=== PATIENT | female | born 1975 | race Caucasian/White ===

== ENCOUNTER 2016-11-19 20:54 | Emergency (ER) | payer OTHER ==
[2016-11-19 21:13] VITALS: BMI 27.3
[2016-11-19] MEDS ORDERED: THIAMINE HCL INJ ONE (21:20)
[2016-11-19] MEDS ORDERED: PHENOBARBITAL SODIUM INJ 65 MG VIAL ONE (21:20)
[2016-11-19] MEDS ORDERED: MAGNESIUM SULFATE 50% INJ ONE (21:21)
[2016-11-19] MEDS ORDERED: MVI INJ (ADULT) IV ONE (21:21)
[2016-11-19] MEDS ORDERED: NS 1000 ML 1,000 ML ONE (21:21)
--- NOTE | 2016-11-19 21:24 | DR.GENAD ---
HPI - PCP Primary Care Physician: NFD - Complaint/Symptoms Chief Complaint Doctors Comments: Patient states she is having withdrawals from "alcohol mainly" and she has been trying to manage it at home but has not been successful. [facility] she has a bed for rehab Tuesday but did not think she could wait that long. States the last time she went through withdrawals was about about a month ago. She is complaining of persistent dry heaving, nasuea, vomiting, SoB but karen chest pain, cold, cough, fever or chills. [facility] she drank 6 oz wine, 12 pack today but she has been trying to scale back when she normally drink three liters, and 2-3 tall one daily. She has used drugs but none recently. [facility] she was admitted at [facility] in [facility] about 3-4 weeks ago with the same problem and they have a bed for her on Tuesday. [facility] she was admitted at [facility] to being admitted at [facility]. [facility] she has an implant in her left arm and she is not . Chief Complaint:: ALCOHOL WITHDRAWAL Self Treatment fo Chief Complaint: ZOFRAN 4 AND ONE LITER OF FLUIDS ENROUTE - Nurses notes reviewed Nurses Notes Review: Yes - Source History Provided: Patient, EMS - Mode of Arrival Mode of Arrival: EMS - Timing Onset of Chief Complaint: 11/16/16 Came on: Gradually - Duration Duration: Constant How lon Duration: Days - Location Location: diffuse nausea - Severity Severity: Moderate - Modifying Factors Worsens:: nothing Improves:: nothing PMH - PMH Past Medical History: No Past Surgical History: No - Family History History of Family Medical Conditions: Yes Family Medical History: Hypertension - Social History Does patient currently use any type of tobacco product: No Have you used tobacco products in the last 12 months: No Type of Tobacco Use: None Does any household member use tobacco: No Alcohol Use: Heavy Do you use any recreational Drugs:: Yes (MARIJUANA) Lives With: Family Lives Where: Home - infectious screening In the last 2 months have you had wt loss of >10#?: NO Have you had fever, night sweats or hemotysis?: No Have you traveled outside the country in the last 6 months?: No Isolation: Standard ROS - Review of Systems Constitutional: No Symptoms Reported, Weakness, Loss of Appetite. negative: See HPI, Chills, Diaphoresis, Fever, Malaise, Irritable, Fatigue, Other Eyes: No Symptoms Reported ENTM: No Symptoms Reported. negative: See HPI, Ear Pain, Ear Discharge, Pulling on Ears, Hearing Loss, Nose Pain, Nose Discharge, Epistaxis, Nose Congestion, Mouth Pain, Mouth Swelling, Loose Teeth, Drooling, Throat Pain, Throat Swelling, Ear Foreign Body Respiratoy: No Symptoms Reported, Short of Breath. negative: See HPI, Productive Cough, Non-Productive Cough, Moist Cough, Dry Cough, Hacking Cough, Barking Cough, Brassy Cough, Orthopnea, Stridor, Wheezing, Hemoptysis, Other Cardiovascular: No Symptoms Reported Gastrointestinal/Abdominal: Nausea, Vomiting. negative: No Symptoms Reported, See HPI, Abdominal Pain, Constipation, Diarrhea, Food Intolerance, Other Genitourinary: No Symptoms Reported, Frequency. negative: See HPI, Discharge, Dysuria, Hematuria, Pain, Bleeding, Other Neurological: No Symptoms Reported. negative: See HPI, Anxiety, Depressed, Emotional Problems, Headache, Numbness, Paresthesia, Pre-existing Deficit, Seizure, Tingling, Tremors, Weakness, Dizziness, Problems Walking, Speech Problem, Other Musculoskeletal: No Symptoms Reported Integumentary: No Symptoms Reported Hematologic/Lymphatic: No Symptoms Reported Endocrine: No Symptoms Reported Psychiatric: No Symptoms Reported. negative: See HPI, Anxiety, Depression, Hallucinations, Excessive crying, Suicidal, Other PE - Vital Signs Vitals: Temperature 98.9 F Pulse Rate [Left Brachial] 84 Pulse Rate 126 Respiratory Rate 20 Blood Pressure [Left Arm] 141/84 Blood Pressure 171/104 O2 Sat by Pulse Oximetry 100 - General Limitations: No Limitations General Appearance: Alert, In Distress (mild) - Head Head Exam: Normal Inspection, Atraumatic, Normocephalic - Eyes Eye exam: Normal Appearance, PERRL, EOMI. negative: Scleral Icterus, Conjunctival Injection, Nystagmus, Miosis, Mydrasis, Periorbital Swelling, Periorbital Tenderness, Other - ENT ENT Exam: Normal Exam, Normal Oropharynx, Normal External Ear Exam, Mucous Membranes Moist, TM's Normal Bilaterally External Ear Exam: Normal External Inspection TM/Canal Exam: Bilateral Normal Nose Exam: Normal Nose Exam Mouth Exam: Normal Inspection. negative: Drooling, Trismus, Lip Swelling, Tongue Elevation, Tongue Swelling, Laceration, Other Throat Exam: Normal Inspection. negative: Tonsillar Erythema, Tonsillomegaly, Tonsillar Exudate, R Peritonsillar Mass, L Peritonsillar Mass, Muffled Voice, Other - Neck Neck Exam: Normal Inspection, Full ROM, Trachea Midline. negative: Tenderness, Meningismus, Lymphadenopathy, Thyromegaly, Other - Chest Chest Inspection: Normal Inspection, Symmetric Chest Wall Rise. negative: Tenderness, Rash, Abscess, Other - Respiratory Respiratory Exam: Normal Lung Sounds Bilat Respiratory Exam: Bilateral Clear to Auscultation - Cardiovascular Cardiovascular Exam: Regular Rate, Tachycardia, Normal Heart Sounds - Abdominal Exam Abdominal Exam: Normal Inspection, Normal Bowel Sounds, Soft, Tenderness ( slight LUQ and epigastric tenderness). negative: Distention, Guarding, Rebound , Rigidity, Dimnished Bowel Sounds, Hyperactive Bowel Sounds, Hypoactive Bowel Sounds, Organomegaly, Trauma, Incision, Ascites, Mass, Bruit, Pulsatile Mass, Hernia, Other Abdominal Tenderness: LUQ, Epigastrium, Mild - Extremities Extremities Exam: Normal Inspection, Full ROM, Normal Capillary Refill. negative: Tenderness, Edema, Joint Swelling, Calf Tenderness, Other - Back Back Exam: Normal Inspection, Full ROM. negative: Tenderness, (R) CVA Tenderness, (L) CVA Tenderness, Muscle Spasm, Paraspinal Tenderness, Vertebral Tenderness, Rashes, (R) Sciatic Notch Tenderness, (L) Sciatic Notch Tendern, (R ) Straight Leg Raise, (L) Straight Leg Raise, Other - Neurologic Neurological Exam: Alert, Oriented X3, CN II-XII Intact, Reflexes Normal. negative: Normal Gait (gait not tested) - Psychiatric Psychiatric Exam: Normal Affect, Normal Mood - Skin Skin Exam: Warm, Dry, Intact, Normal Color Course - Reevaluation 3rd: Improved (Patient referred to the [facility] for treatment. She is making arrangement for them to take her today.1000am. ) - Consultation Called: 23:25 Call Returned: 23:25 (Dr. Turner contacted patient to be dismissed) Consultation Comments: Patient had a bed for detox and she is not in withdrawals presently. Patient to return if she gets worst. - Education/Counseling Education/Counseling: Patient Educated On: Treatment, Diagnosis, Needs for Follow Up ROR - Labs Reviewed Laboratory Results Reviewed?: Yes (all labs and x-ray results reviewed and discussed with patient) Result Diagrams: 11/19/16 21:26 11/20/16 04:20 Laboratory: WBC 6.5 X10^3/uL (3.6-10.0) 11/19/16 21:26 RBC 4.30 X10^6/uL (3.5-5.4) 11/19/16 21:26 Hgb 12.7 g/dL (12.0-16.0) 11/19/16 21:26 Hct 37.5 % (36.0-47.0) 11/19/16 21: MCV 87.3 fL (80.0-100.0) 11/19/16 21: MCH 29.5 pg (27.0-34.0) 11/19/16 21: MCHC 33.8 g/dL (33.0-35.0) 11/19/16: RDW 22.2 % (11.6-16.5) H 11/19/16 21: Plt Count 489 X10^3/uL (150.0-450.0) H 11/19/16 21: Plt Count Comment Increased (ADEQUATE) A 11/19/16: MPV 6.9 fL (7.4-11.0) L 11/19/16 21: Neut % 52.4 % (42.0-75.0) 11/19/16 21: Lymph % 36.1 % (21.0-51.0) 11/19/16 21: [place] % 5.8 % (0.0-13.0) 11/19/16 21: Eos % 2.4 % (0.9-2.9) 11/19/16 21:26 Baso % 3.3 % (0.2-1.0) H 11/19/16 21:26 Neut # 3.4 x10^3/uL (2.2-4.8) 11/19/16 21:26 Lymph # 2.4 X10^3/uL (1.3-2.9) 11/19/16 21:26 [place] # 0.4 x10^3/uL (0.3-0.8) 11/19/16 21:26 Eos # 0.2 x10^3/uL (0.0-0.2) 11/19/16 21:26 Baso # 0.2 X10^3/uL (0.0-0.1) H 11/19/16 21:26 Absolute Nucleated RBC 0.0 /100WBC 11/19/16 21:26 Plt Morphology Comment Normal (NORMAL) 11/19/16 21:26 RBC Morphology Abnormal (NORMAL) A 11/19/16 21:26 Anisocytosis 2+ A 11/19/16 21:26 INR Target Range - 11/19/16 21:26 INR 1.10 (0.8-1.3) 11/19/16 21:26 PTT 28.5 SECONDS (22.9-36.5) 11/19/16 21:26 PTT Comment - 11/19/16 21:26 Sodium 142 mmol/L (136-145) 11/20/16 04:20 Corrected Sodium TNP 11/20/16 04:20 Potassium 3.5 mmol/L (3.5-5.1) 11/20/16 04:20 Chloride 108 mmol/L (98-107) H 11/20/16 04:20 Carbon Dioxide 23.5 mmol/L (21-32) 11/20/16 04:20 BUN 6 mg/dL (7-18) L 11/20/16 04:20 Creatinine 0.89 mg/dL (0.55-1.02) 11/20/16 04:20 Est GFR (MDRD) Af Amer > 60 (>60) 11/20/16 04:20 Est GFR (MDRD) Non-Af > 60 (>60) 11/20/16 04:20 Glucose 83 mg/dL (65-99) 11/20/16 04:20 Calcium 7.7 mg/dL (8.5-10.1) L 11/20/16 04:20 Corrected Calcium TNP 11/19/16 21:26 Phosphorus 3.9 mg/dL (2.6-4.7) 11/19/16 21:56 Magnesium 1.9 mg/dL (1.7-2.9) 11/19/16 21:26 Total Bilirubin 0.30 mg/dL (0.2-1.0) 11/19/16 21:26 AST 35 Units/L (15-37) 11/19/16 21:26 ALT 34 Units/L (12-78) 11/19/16 21:26 Alkaline Phosphatase 81 Units/L (46-116) 11/19/16 21:26 Creatine Kinase 385 Units/L (26-192) H 11/19/16 21:26 CK-MB (CK-2) 1.5 ng/mL (0-4.0) 11/19/16 21:26 CK/CKMB % Calc 0.4 % (<4) 11/19/16 21:26 Troponin I < 0.02 ng/mL (0-1.5) 11/19/16 21:26 Total Protein 7.2 g/dL (6.4-8.2) 11/19/16 21: Albumin 3.5 g/dL (3.4-5.0) 11/19/16 21: Globulin 3.7 g/dL (2.5-4.5) 11/19/16 21: Albumin/Globulin Ratio 0.9 Ratio (1.1-2.1) L 11/19/16 21:26 HCG, Qual Negative <10 mIU/mL 11/19/16 21:26 Specimen Type Random urine 11/19/16 21:10 Urine Color Pale yellow (YELLOW) 11/19/16 21:10 Urine Appearance Clear (CLEAR) 11/19/16 21:10 Urine pH 7.0 (5.0 - 8.0) 11/19/16 21:10 Ur Specific [place] 1.010 (1.000-1.030) 11/19/16 21:10 Urine Protein Negative (NEGATIVE) 11/19/16 21:10 Urine Glucose (UA) Negative (NEGATIVE) 11/19/16 21:10 Urine Ketones Negative (NEGATIVE) 11/19/16 21:10 Urine Occult Blood Negative (NEGATIVE) 11/19/16 21:10 Urine Nitrite Negative (NEGATIVE) 11/19/16 21:10 Urine Bilirubin Negative (NEGATIVE) 11/19/16 21:10 Urine Urobilinogen Normal (NORMAL) 11/19/16 21:10 Ur Leukocyte Esterase Negative (NEGATIVE) 11/19/16 21:10 Urine RBC 0-3 /HPF (NEGATIVE) 11/19/16 21:10 Urine WBC 0-3 /HPF (NEGATIVE) 11/19/16 21:10 Ur Squamous Epith Cells Rare /HPF (NEGATIVE) 11/19/16 21:10 Urine Bacteria Negative /HPF (NEGATIVE) 11/19/16 21:10 Ur Culture Indicated? No/not indicated 11/19/16 21:10 Salicylates 7.2 mg/dL (2.8-20) 11/19/16 21:26 Urine Opiates Screen Negative (NEG=<300) 11/19/16 21:10 Urine Methadone Screen Negative (NEG=<300) 11/19/16 21:10 Acetaminophen 0.0 ug/mL (10-30) L 11/19/16 21:26 Ur Barbiturates Screen Negative (NEG=<200) 11/19/16 21:10 Ur Phencyclidine Scrn Negative (NEG=<25) 11/19/16 21:10 Ur Amphetamines Screen Negative (NEG=<1000) 11/19/16 21:10 U Benzodiazepines Scrn Negative (NEG=<200) 11/19/16 21:10 Urine Cocaine Screen Negative (NEG=<300) 11/19/16 21:10 U Marijuana (THC) Screen Negative (NEG=<50) 11/19/16 21:10 Ethyl Alcohol mg/dL 119 mg/dL (0-19.9) H 11/20/16 09:15 - XRAY XRAY Interpreted by: Self (CXR: no acute cardiopulmonary changes noted) - EKG Rate: 113 [place]: Normal Rhythm: ST Block: None Hypertrophy: None ST: Normal - Diagnosis Discharge Problem: Alcohol intoxication, Hypocalcemia, metabolic acidosis, resolved - Discharge Plan Disposition: HOME, SELF-CARE Condition: Stable - Follow ups/Referrals Follow ups/Referrals: NFD,None [Primary Care Provider] - 3 days PJ TURNER [STAFF PHYSICIAN] - 3 days - Instructions Instructions: Alcohol Use Disorder, Hypocalcemia, Adult, Alcohol Intoxication
[2016-11-19 21:44] LABS: BILIRUBIN,URINE NEGATIVE (NEGATIVE); BLOOD/HEMOGLOBIN,URINE NEGATIVE (NEGATIVE); GLUCOSE, URINE NEGATIVE (NEGATIVE); KETONES,URINE NEGATIVE (NEGATIVE); LEUKOCYTE ESTERASE ,URINE NEGATIVE (NEGATIVE); NITRITES,URINE NEGATIVE (NEGATIVE); PROTEIN,URINE NEGATIVE (NEGATIVE); UROBILINOGEN,URINE NORMAL (NORMAL)
[2016-11-19 21:45] LABS: BASOPHILS # (AUTO) 0.2 X10^3/uL (0.0-0.1); BASOPHILS % (AUTO) 3.3 % (0.2-1.0); EOSINOPHILS # (AUTO) 0.2 x10^3/uL (0.0-0.2); EOSINOPHILS % (AUTO) 2.4 % (0.9-2.9); HEMATOCRIT 37.5 % (36.0-47.0); HEMOGLOBIN 12.7 g/dL (12.0-16.0); LYMPHOCYTES # (AUTO) 2.4 X10^3/uL (1.3-2.9); LYMPHOCYTES % (AUTO) 36.1 % (21.0-51.0); MEAN CORPUSCULAR HEMOGLOBIN 29.5 pg (27.0-34.0); MEAN CORPUSCULAR HGB CONC 33.8 g/dL (33.0-35.0); MEAN CORPUSCULAR VOLUME 87.3 fL (80.0-100.0); MEAN PLATELET VOLUME 6.9 fL (7.4-11.0); MONOCYTES # (AUTO) 0.4 x10^3/uL (0.3-0.8); MONOCYTES % (AUTO) 5.8 % (0.0-13.0); NEUTROPHILS # (AUTO) 3.4 x10^3/uL (2.2-4.8); NEUTROPHILS % (AUTO) 52.4 % (42.0-75.0); PLATELET COUNT 489 X10^3/uL (150.0-450.0); RED CELL DISTRIBUTION WIDTH 22.2 % (11.6-16.5); WHITE BLOOD COUNT 6.5 X10^3/uL (3.6-10.0)
[2016-11-19 21:57] LABS: SALICYLATE 7.2 mg/dL (2.8-20)
[2016-11-19 21:58] LABS: BLOOD UREA NITROGEN 7 mg/dL (7-18); CALCIUM 7.7 mg/dL (8.5-10.1); CARBON DIOXIDE 19.8 mmol/L (21-32); CHLORIDE 107 mmol/L (98-107); CREATININE 0.87 mg/dL (0.55-1.02); SODIUM 143 mmol/L (136-145); TROPONIN I < 0.02 ng/mL (0-1.5); eGFR BLACK RACES > 60 (>60); eGFR NON BLACK RACES > 60 (>60)
[2016-11-19 21:59] LABS: SERUM PREGNANCY TEST, QUAL NEGATIVE <10 mIU/mL
[2016-11-19] MEDS ORDERED: NS 1000 ML 1,000 ML with THIAMINE HCL INJ 100 MG, MAGNESIUM SULFATE 50% INJ 1 GM, MVI I... IV SCH ×5 (22:00)
[2016-11-19 22:02] LABS: ALANINE AMINOTRANSFERASE 34 Units/L (12-78); ALBUMIN 3.5 g/dL (3.4-5.0); ALKALINE PHOSPHATASE 81 Units/L (46-116); ASPARTATE AMINO TRANSFERASE 35 Units/L (15-37); CKMB % 0.4 % (<4); CREATINE KINASE 385 Units/L (26-192); CREATINE KINASE MB 1.5 ng/mL (0-4.0); MAGNESIUM 1.9 mg/dL (1.7-2.9); TOTAL PROTEIN 7.2 g/dL (6.4-8.2)
[2016-11-19 22:07] LABS: APPEARANCE,URINE CLEAR (CLEAR); BACTERIA,URINE NEGATIVE /HPF (NEGATIVE); COLOR,URINE PALE YELLOW (YELLOW); RBC,URINE 0-3 /HPF (NEGATIVE); SQUAMOUS EPITHELIAL CELL,UR RARE /HPF (NEGATIVE)
[2016-11-19 22:12] LABS: BLOOD ALCOHOL 383 mg/dL (0-19.9)
[2016-11-19 22:15] LABS: ANISOCYTOSIS 2+; PLATELET MORPHOLOGY COMMENT NORMAL (NORMAL)
[2016-11-20] MEDS ORDERED: NS 1000 ML 1,000 ML IV ONE ×2 (00:09→03:12)
[2016-11-20] MEDS ORDERED: TUMS PO STA (00:12)
[2016-11-20 00:52] LABS: CALCIUM 7.7 mg/dL (8.5-10.1); PHOSPHORUS 3.9 mg/dL (2.6-4.7)
[2016-11-20] MEDS ORDERED: PHENERGAN INJ 25 MG ONE (01:17)
[2016-11-20] MEDS ORDERED: PHENERGAN INJ 25 MG IM ONE (01:32)
[2016-11-20] MEDS ORDERED: NS 1000 ML 1,000 ML ONE (03:09)
[2016-11-20] MEDS ORDERED: CATAPRES TAB 0.1 MG PO ONE (03:09)
[2016-11-20 04:42] LABS: BLOOD ALCOHOL 221 mg/dL (0-19.9); BLOOD UREA NITROGEN 6 mg/dL (7-18); CALCIUM 7.7 mg/dL (8.5-10.1); CARBON DIOXIDE 23.5 mmol/L (21-32); CHLORIDE 108 mmol/L (98-107); CREATININE 0.89 mg/dL (0.55-1.02); SODIUM 142 mmol/L (136-145); eGFR BLACK RACES > 60 (>60); eGFR NON BLACK RACES > 60 (>60)
[2016-11-20 09:52] VITALS: BP 141/84
--- NOTE | 2016-11-20 17:01 | RAD ---
HISTORY: Alcohol withdrawal Study: Single view of the chest. Comparison: None. Findings: The cardiomediastinal silhouette is normal. No focal consolidations, pleural effusions or pneumothora x. Osseous structures demonstrate no acute abnormality. IMPRESSION: 1. No acute cardiopulmonary process. Reported By:
== END 2016-11-20 12:07 | disposition home or self-care (01) ==
LOC: ER 21:05
DX: F10.129 Alcohol abuse with intoxication, unspecified (principal); E83.51 Hypocalcemia; E87.2 Acidosis
CPT/HCPCS: 36415; 71010; 80048; 80053; 80307; 80320; 81001; 82310; 82550; 82553; 83735; 84100; 84484; 84703; 85025; 85610; 85730; 93005; 93010; 96365; 96372; 99283; 99284; A4222; G0434; G6038; G6039; G6040; J2550; J2560; J3411; J3475